=== PATIENT | female | born 1955 | race African-American/Black ===

== ENCOUNTER 2019-01-19 16:35 | Emergency (ER) | payer OTHER, MEDICAID ==
[~2019-01-19] VITALS: Ht 167.6 cm; Wt 78.0 kg
[~2019-01-19 16:35] MED LIST: HYDR12.529 PO
[2019-01-19] MEDS ORDERED: DIPHENHYDRAMINE 25MG CAPSULE PO ONE (20:00)
[2019-01-19 20:07] VITALS: BP 120/60
== END 2019-01-19 20:07 | disposition home or self-care (01) ==
LOC: ER 16:35
DX: H10.213 Acute toxic conjunctivitis, bilateral (principal); J45.909 Unspecified asthma, uncomplicated; E78.00 Pure hypercholesterolemia, unspecified; I10 Essential (primary) hypertension; Z88.0 Allergy status to penicillin
CPT/HCPCS: 99282; Q0163